=== PATIENT | female | born 1990 | race Caucasian/White ===

== ENCOUNTER 2017-10-18 15:05 | Emergency (ER) | payer SELFPAY ==
[~2017-10-18 15:05] MED LIST: AMOXICILLIN500 MG PO; CEFDINIR300 MG PO; FLAGYL500 MG PO; MOTRIN800 MG PO; ZANTAC150 MG PO
[2017-10-18] MEDS ORDERED: MOTRIN600 MG PO (17:36)
[2017-10-18 18:02] VITALS: BP 123/70
== END 2017-10-18 18:02 | disposition home or self-care (01) ==
LOC: EME 15:05
DX: M26.602 Left temporomandibular joint disorder, unspecified (principal); F17.200 Nicotine dependence, unspecified, uncomplicated
CPT/HCPCS: 99281; 99284

== ENCOUNTER 2018-02-16 22:19 | Emergency (ER) | payer SELFPAY ==
[~2018-02-16] VITALS: Ht 165.1 cm; Wt 53.7 kg
[~2018-02-16 22:19] MED LIST changes: +MOTRIN600 MG PO
[2018-02-16 22:54] VITALS: BP 125/77
== END 2018-02-17 03:14 | disposition left against medical advice (07) ==
LOC: EME 22:19
DX: R06.00 Dyspnea, unspecified (principal); R09.81 Nasal congestion; Z53.21 Procedure and treatment not carried out due to patient leaving prior to being seen by health care provider